=== PATIENT | male | born 1980 | race Caucasian/White ===

== ENCOUNTER 2021-09-30 13:43 | Emergency (ER) | payer MEDICAID, OTHER ==
[~2021-09-30] VITALS: Ht 175.3 cm; Wt 77.3 kg
[2021-09-30 14:28] VITALS: BP 122/72
[2021-09-30] MEDS ORDERED: gabapentin 300mg capsule PO SCH (17:15)
[2021-09-30] MEDS ORDERED: GABA600T13 PO (17:15)
[2021-09-30] MEDS ORDERED: buprenorphine/naloxone 8MG-2MG SUBlingual film SL ONE (17:28)
[2021-10-01] MEDS ORDERED: buprenorphine/naloxone 8MG-2MG SUBlingual film SL SCH (08:00)
== END 2021-09-30 17:42 | disposition home or self-care (01) ==
LOC: ER 13:43
DX: F11.10 Opioid abuse, uncomplicated (principal); Z76.0 Encounter for issue of repeat prescription; Z98.890 Other specified postprocedural states; Z79.899 Other long term (current) drug therapy
CPT/HCPCS: 99283

== ENCOUNTER 2023-06-27 08:52 | Outpatient (CLI) | payer MEDICAID ==
[~2023-06-27 08:52] MED LIST: GABA600T13 PO
== END 2023-06-27 23:59 | disposition home or self-care (01) ==
LOC: MRI 08:52
PROVIDERS: ATTEND Orthopaedic Surgery
DX: S83.281A Other tear of lateral meniscus, current injury, right knee, initial encounter (principal); S83.511A Sprain of anterior cruciate ligament of right knee, initial encounter; S83.512A Sprain of anterior cruciate ligament of left knee, initial encounter; M17.2 Bilateral post-traumatic osteoarthritis of knee; M71.22 Synovial cyst of popliteal space [Baker], left knee; M71.21 Synovial cyst of popliteal space [Baker], right knee; M25.462 Effusion, left knee; M25.461 Effusion, right knee; M25.561 Pain in right knee; X58.XXXA Exposure to other specified factors, initial encounter; Y93.89 Activity, other specified; Y92.89 Other specified places as the place of occurrence of the external cause; Y99.8 Other external cause status
CPT/HCPCS: 73721